=== PATIENT | female | born 1955 | race Caucasian/White ===

== ENCOUNTER 2017-01-21 15:54 | Emergency (ER) | payer MEDICARE, OTHER ==
[~2017-01-21] VITALS: Ht 157.5 cm; Wt 81.6 kg
[~2017-01-21 15:54] MED LIST: HYOS0.1217 PO; ONDA-42 SL; PNT40TEC PO
--- NOTE | 2017-01-21 16:13 | ED GI ---
General Chief Complaint: Cardiac/General Problems Stated Complaint: NAUSEA,THROWING UP,HIGH BLOOD PRESSURE Nursing Triage Note: NVD ONSET SUNDAY. VOMIT X10 WITH DIARRHEA X5-6 TODAY. Sepsis Screen: No Definite Risk Source of Information: Patient, Family Exam Limitations: No Limitations History of Present Illness Time Seen By Provider: 16:12 Initial Comments This 7-year-old white female presents with a history of persistent nausea and vomiting for the last 2 days. The patient believes that she has a viral gastroenteritis. The patient has noted that her blood pressure has been elevated as she's been unable to take her hyper extension medication and that her sugar has been elevated for the same reason from her type II diabetes. The patient denies coffee-ground emesis or blood in her stool. She denies dysuria frequency or flank pain. She is had no associated severe headache or stiff neck. Allergies and Home Medications Allergies Coded Allergies: Sulfa (Sulfonamide Antibiotics) (Verified Allergy, Unknown, 08/04/13) Home Medications Hyoscyamine Sulfate 0.125 Mg/Tab Tab.rapdis, 1-2 EACH PO Q4HR PRN, #30 FOR STOMACH DISCOMFORT Prescribed by: LOLI FONSECA on 08/04/13 1638 Ondansetron Hcl 4 Mg Tab, 4 MG SL Q4H, #10 FOR NAUSEA AND VOMITING Prescribed by: LOLI FONSECA on 08/04/13 1638 Pantoprazole Sodium 40 Mg Tablet.dr, 1 TAB PO DAILY, #30 Prescribed by: LOLI FONSECA on 08/04/13 1638 Review of Systems Constitutional: fever, malaise, weakness EENTM: No Blurred Vision, No Ear Pain Respiratory: Denies Cough Cardiovascular: Denies Chest Pain Gastrointestinal: Diarrhea, Nausea, Vomiting Genitourinary: Denies Burning, Denies Frequency Musculoskeletal: No back pain Skin: No change in color, No rash Psychiatric/Neurological: No Symptoms Reported Endocrine: No Symptoms Reported Hematologic/Lymphatic: No Symptoms Reported Past Ebfkfli-Fmaxog-Mnilab Hx Patient Social History Alcohol Use: Denies Use Recreational Drug Use: No Smoking Status: Never a Smoker Recent Foreign Travel: No Contact w/Someone Who Travel: No Recent Infectious Disease Expo: No Surgeries HX Surgeries: Yes (D&C X 2) Respiratory Hx Respiratory Disorders: No Cardiovascular Hx Cardiac Disorders: No Neurological Hx Neurological Disorders: No Genitourinary Hx Genitourinary Disorders: No Gastrointestinal Hx Gastrointestinal Disorders: No Musculoskeletal Hx Musculoskeletal Disorders: Yes Musculoskeletal Disorders: Chronic Back Pain Endocrine Hx Endocrine Disorders: No HEENT HX ENT Disorders: Yes Hearing Impairment: Hard of Hearing Cancer Hx Cancer: Yes Cancer: Breast Psychosocial Hx Psychiatric Problems: No Integumentary HX Skin/Integumentary Disorder: No Blood Transfusions Hx Blood Disorders: No Adverse Reaction to a Blood Tr: No Reviewed Nursing Assessment Reviewed/Agree w Nursing PMH: Yes Physical Exam Vital Signs VS - Last 72 Hours, by Label 01/21/17 16:06 Pulse 83 Resp 18 B/P (MAP) 142/105 Pulse Ox 98 Capillary Refill : Less Than 3 Seconds General Appearance: WD/WN, mild distress HEENT: normal ENT inspection, TMs normal, pharynx normal Neck: non-tender, full range of motion, supple Respiratory: chest non-tender, lungs clear, normal breath sounds Cardiovascular: normal peripheral pulses, regular rate, rhythm Gastrointestinal: normal bowel sounds, non tender, soft Extremities: normal range of motion, non-tender, normal inspection Back: normal inspection, no CVA tenderness, no vertebral tenderness Neurologic/Psychiatric: no motor/sensory deficits, alert, normal mood/affect Skin: normal color, warm/dry Progress/Results/Core Measures Results/Orders Lab Results Laboratory Tests Test 01/21/17 16:15 01/21/17 16:16 Range/Units White Blood Count 9.9 4.3-11.0 10^3/uL Red Blood Count 4.42 4.35-5.85 10^6/uL Hemoglobin 14.9 11.5-16.0 G/DL Hematocrit 43 35-52 % Mean Corpuscular Volume 96 80-99 FL Mean Corpuscular Hemoglobin 34 25-34 PG Mean Corpuscular Hemoglobin Concent 35 32-36 G/DL Red Cell Distribution Width 12.3 10.0-14.5 % Platelet Count 283 130-400 10^3/uL Mean Platelet Volume 8.6 7.4-10.4 FL Neutrophils (%) (Auto) 68 42-75 % Lymphocytes (%) (Auto) 26 12-44 % Monocytes (%) (Auto) 6 0-12 % Eosinophils (%) (Auto) 0 0-10 % Basophils (%) (Auto) 0 0-10 % Neutrophils # (Auto) 6.8 1.8-7.8 X 10^3 Lymphocytes # (Auto) 2.5 1.0-4.0 X 10^3 Monocytes # (Auto) 0.6 0.0-1.0 X 10^3 Eosinophils # (Auto) 0.0 0.0-0.3 10^3/uL Basophils # (Auto) 0.0 0.0-0.1 10^3/uL Sodium Level 140 135-145 MMOL/L Potassium Level 3.9 3.6-5.0 MMOL/L Chloride Level 104 98-107 MMOL/L Carbon Dioxide Level 20 L 21-32 MMOL/L Anion Gap 16 H 5-14 MMOL/L Blood Urea Nitrogen 17 7-18 MG/DL Creatinine 0.98 0.60-1.30 MG/DL Estimat Glomerular Filtration Rate 58 BUN/Creatinine Ratio 17 0-20 Glucose Level 224 H 70-105 MG/DL Calcium Level 10.2 H 8.5-10.1 MG/DL Total Bilirubin 0.5 0.1-1.0 MG/DL Aspartate Amino Transf (AST/SGOT) 20 5-34 U/L Alanine Aminotransferase (ALT/SGPT) 21 0-55 U/L Alkaline Phosphatase 108 40-136 U/L Total Protein 8.6 H 6.4-8.2 GM/DL Albumin 4.4 3.2-4.5 GM/DL Glucometer 208 H 70-110 MG/DL My Orders Orders - WILDER MITCHELL MD Ns Iv 1000 Ml (Sodium Chloride 0.9%) (01/21/17 16:15) Ondansetron Injection (Zofran Injectio (01/21/17 16:15) Cbc With Automated Diff (01/21/17 16:10) Comprehensive Metabolic Panel (01/21/17 16:10) Ua Culture If Indicated (01/21/17 16:10) Normal Saline Bolus 1,000ml (01/21/17 17:45) Medications Given in ED Current Medications Medications Dose Ordered Sig/Allen Route Start Time Stop Time Status Last Admin Dose Admin Ondansetron HCl 4 mg ONCE ONCE IVP 01/21/17 16:15 01/21/17 16:16 DC 01/21/17 16:24 4 MG Vital Signs/I&O Vital Sign - Last 12Hours 01/21/17 16:06 Pulse 83 Resp 18 B/P (MAP) 142/105 Pulse Ox 98 Blood Pressure Mean: 117 Progress Note : Time: 17:32 Progress Note The patient's laboratory evaluation demonstrated glucose of 201. The patient's white count was not dramatically elevated. The patient was rehydrated with a liter of normal saline. Her nausea abated with 4 mg Zofran IV. Because the patient has had previous similar episode that led to significant complications from dehydration and a second liter of normal saline was given to her to make certain that we had adequately hydrated her. The patient has been are comfortable with home care with Zofran for further nausea. They will return to emergency Department if they have any difficulty in maintaining liquids and hydration. Departure Impression Impression: Primary Impression: Nausea vomiting and diarrhea Disposition: HOME, SELF-CARE Condition: Improved Departure-Patient Inst. Decision time for Depature: 17:34 Add. Discharge Instructions: Zofran for nausea. Clear liquids for 24 hours. Close follow-up with your doctor on Sunday. Return if any problems or questions. All discharge instructions reviewed with patient and/or family. Voiced understanding. WILDER MITCHELL MD Jan 21, 2017 16:13
[2017-01-21] MEDS ORDERED: ONDANSETRON 4 MG/2 ML (SDV) Z0FRAN IVP ONE (16:15)
[2017-01-21] MEDS ORDERED: NS IV 1000 ML 1,000 ML IV SCH ×2 (16:15→17:45)
[2017-01-21 16:32] LABS: BASOPHILS % (AUTO) 0 % (0-10); EOSINOPHILS % (AUTO) 0 % (0-10); LYMPHOCYTES # (AUTO) 2.5 X 10^3 (1.0-4.0); LYMPHOCYTES % (AUTO) 26 % (12-44); MEAN CORPUSCULAR HEMOGLOBIN 34 PG (25-34); MEAN CORPUSCULAR HGB CONC 35 G/DL (32-36); MEAN CORPUSCULAR VOLUME 96 FL (80-99); MEAN PLATELET VOLUME 8.6 FL (7.4-10.4); MONOCYTES # (AUTO) 0.6 X 10^3 (0.0-1.0); MONOCYTES % (AUTO) 6 % (0-12); NEUTROPHILS # (AUTO) 6.8 X 10^3 (1.8-7.8); NEUTROPHILS % (AUTO) 68 % (42-75); PLATELET COUNT 283 10^3/uL (130-400); RED BLOOD COUNT 4.42 10^6/uL (4.35-5.85); RED CELL DISTRIBUTION WIDTH 12.3 % (10.0-14.5); WHITE BLOOD COUNT 9.9 10^3/uL (4.3-11.0)
[2017-01-21 17:22] LABS: ALBUMIN 4.4 GM/DL (3.2-4.5); BILIRUBIN,TOTAL 0.5 MG/DL (0.1-1.0); CALCIUM 10.2 MG/DL (8.5-10.1); CREATININE SERUM 0.98 MG/DL (0.60-1.30); ICTERUS 0.5 (-100-1.9); POTASSIUM 3.9 MMOL/L (3.6-5.0); TOTAL PROTEIN 8.6 GM/DL (6.4-8.2)
[2017-01-21 18:40] VITALS: BP 142/105
== END 2017-01-21 18:40 | disposition home or self-care (01) ==
LOC: EDUNIT# 15:54 → ER 15:58
DX: R11.2 Nausea with vomiting, unspecified (principal); R19.7 Diarrhea, unspecified
CPT/HCPCS: 36415; 80053; 82962; 85025

== ENCOUNTER 2017-07-28 04:04 | Emergency (ER) | payer MEDICARE, OTHER ==
[~2017-07-28] VITALS: Ht 157.5 cm; Wt 81.6 kg
[2017-07-28] MEDS ORDERED: NS IV 1000 ML 1,000 ML IV ONE (04:24)
[2017-07-28] MEDS ORDERED: FAMOTIDINE 20MG/2ML IV (PEPCID) IVP ONE (04:30)
[2017-07-28] MEDS ORDERED: fentaNYL INJECTION 100 MCG/2 ML AMP IVP ONE (04:30)
[2017-07-28] MEDS ORDERED: ONDANSETRON 4 MG/2 ML (SDV) Z0FRAN IVP ONE ×2 (04:30→08:15)
[2017-07-28 04:31] LABS: BASOPHILS % (AUTO) 0 % (0-10); EOSINOPHILS % (AUTO) 0 % (0-10); LYMPHOCYTES # (AUTO) 0.4 X 10^3 (1.0-4.0); LYMPHOCYTES % (AUTO) 8 % (12-44); MEAN CORPUSCULAR HEMOGLOBIN 34 PG (25-34); MEAN CORPUSCULAR HGB CONC 35 G/DL (32-36); MEAN CORPUSCULAR VOLUME 98 FL (80-99); MEAN PLATELET VOLUME 8.6 FL (7.4-10.4); MONOCYTES # (AUTO) 0.1 X 10^3 (0.0-1.0); MONOCYTES % (AUTO) 2 % (0-12); NEUTROPHILS # (AUTO) 4.8 X 10^3 (1.8-7.8); NEUTROPHILS % (AUTO) 89 % (42-75); PLATELET COUNT 195 10^3/uL (130-400); RED BLOOD COUNT 4.01 10^6/uL (4.35-5.85); RED CELL DISTRIBUTION WIDTH 11.4 % (10.0-14.5); WHITE BLOOD COUNT 5.4 10^3/uL (4.3-11.0)
[2017-07-28] MEDS ORDERED: GLIP10TA13 (04:45)
[2017-07-28] MEDS ORDERED: MORP-34 (04:45)
[2017-07-28] MEDS ORDERED: CARI350T27 (04:45)
[2017-07-28] MEDS ORDERED: HYDR-3820 (04:45)
[2017-07-28 04:54] LABS: BAND NEUTROPHILS 13 %; BASOPHILS % (MANUAL) 0 %; EOSINOPHILS % (MANUAL) 0 %; LYMPHOCYTES % (MANUAL) 10 %; NEUTROPHILS % (MANUAL) 72 %; REACTIVE LYMPHOCYTES 4 %
[2017-07-28] MEDS ORDERED: morphine INJ 10 MG/ML 1ML (SYR OR VIAL) IVP ONE (05:00)
[2017-07-28 05:02] LABS: ALANINE AMINOTRANSFERASE 353 U/L (0-55); ALBUMIN 3.7 GM/DL (3.2-4.5); ANION GAP 18 MMOL/L (5-14); ASPARTATE AMINO TRANSFERASE 603 U/L (5-34); BILIRUBIN,TOTAL 1.9 MG/DL (0.1-1.0); BLOOD UREA NITROGEN 17 MG/DL (7-18); BUN/CREATININE RATIO 19; CALCIUM 9.7 MG/DL (8.5-10.1); CARBON DIOXIDE 26 MMOL/L (21-32); CHLORIDE 99 MMOL/L (98-107); CREATININE SERUM 0.91 MG/DL (0.60-1.30); GFR ESTIMATED > 60; GLUCOSE 212 MG/DL (70-105); LIPASE 24 U/L (8-78); MAGNESIUM 1.5 MG/DL (1.8-2.4); POTASSIUM 3.4 MMOL/L (3.6-5.0); SODIUM 143 MMOL/L (135-145); TOTAL PROTEIN 7.6 GM/DL (6.4-8.2)
[2017-07-28 05:07] LABS: BILIRUBIN,URINE NEGATIVE (NEGATIVE); KETONES,URINE 3+ (NEGATIVE); LEUKOCYTE ESTERASE ,URINE 1+ (NEGATIVE); NITRITE,URINE NEGATIVE (NEGATIVE); PH,URINE 7 (5-9); PROTEIN,URINE 1+ (NEGATIVE); UROBILINOGEN,URINE 1 MG/DL (NORMAL)
[2017-07-28 05:13] LABS: WBC,URINE 0-2 /HPF
[2017-07-28] MEDS ORDERED: PROMETHAZINE INJ 25 MG/ML (PHENERGAN) AMP IVP ONE (05:45)
--- NOTE | 2017-07-28 05:48 | ED Abdominal Pain ---
General Chief Complaint: Abdominal/GI Problems Stated Complaint: N/V Nursing Triage Note: C/O nausea, vomiting and abd pain starting at 2200. Sepsis Screen: Possible Sepsis Risk Source of Information: Patient Exam Limitations: No Limitations (ARTHUR DASILVA MD) History of Present Illness Time Seen By Provider: 04:16 Initial Comments This 61-year-old woman presents to the emergency room with complaints of upper abdominal pain, cramping, back spasms, and vomiting that woke her from sleep around 22:00. She denies any blood in her emesis. Her last bowel movement was normal just prior to leaving the house. She is status post cholecystectomy. Patient has chronic back pain for which she takes morphine. She was unable to keep her medications down this evening. She is febrile with a temperature of 101. Patient also reports feeling a little short of breath. Oxygen saturation was 90 percent on room air. (ARTHUR DASILVA MD) Allergies and Home Medications Allergies Coded Allergies: Sulfa (Sulfonamide Antibiotics) (Verified Allergy, Unknown, 07/28/17) Home Medications Carisoprodol 350 Mg Tablet, (Reported) Glipizide 10 Mg Tablet, (Reported) Hydrocodone/Acetaminophen 1 Each Tablet, (Reported) Hyoscyamine Sulfate 0.125 Mg/Tab Tab.rapdis, 1-2 EACH PO Q4HR PRN, #30 FOR STOMACH DISCOMFORT Prescribed by: LOLI FONSECA on 08/04/13 1638 Morphine Sulfate 30 Mg Tablet.er, (Reported) Ondansetron Hcl 4 Mg Tab, 4 MG SL Q4H, #10 FOR NAUSEA AND VOMITING Prescribed by: LOLI FONSECA on 08/04/13 1638 Pantoprazole Sodium 40 Mg Tablet.dr, 1 TAB PO DAILY, #30 Prescribed by: LOLI FONSECA on 08/04/13 1638 Review of Systems Constitutional: see HPI EENTM: No Symptoms Reported Respiratory: See HPI Cardiovascular: No Symptoms Reported Gastrointestinal: See HPI Genitourinary: No Symptoms Reported Musculoskeletal: see HPI Skin: no symptoms reported Psychiatric/Neurological: No Symptoms Reported Endocrine: No Symptoms Reported Hematologic/Lymphatic: No Symptoms Reported (ARTHUR DASILVA MD) Past Gsjmbdg-Subwbq-Goabmr Hx Patient Social History Alcohol Use: Denies Use Recreational Drug Use: No Smoking Status: Never a Smoker 2nd Hand Smoke Exposure: No Recent Foreign Travel: No Contact w/Someone Who Travel: No Recent Infectious Disease Expo: No Recent Hopitalizations: No Physical Abuse: No Sexual Abuse: No Mistreated: No Fear: No (ARTHUR DASILVA MD) Immunizations Up To Date Tetanus Booster (TDap): Unknown (ARTHUR DASILVA MD) Seasonal Allergies Seasonal Allergies: Yes (ARTHUR DASILVA MD) Surgeries History of Surgeries: Yes (D&C X 2) Surgeries: Breast (bilateral mastectomy), Gallbladder (ARTHUR DASILVA MD) Respiratory History of Respiratory Disorde: No (ARTHUR DASILVA MD) Cardiovascular History of Cardiac Disorders: No (ARTHUR DASILVA MD) Neurological History of Neurological Disord: No (ARTHUR DASILVA MD) Genitourinary History of Genitourinary Disor: No (ARTHUR DASILVA MD) Gastrointestinal History of Gastrointestinal Di: No (ARTHUR DASILVA MD) Musculoskeletal History of Musculoskeletal Dis: Yes Musculoskeletal Disorders: Chronic Back Pain (ARTHUR DASILVA MD) Endocrine History of Endocrine Disorders: No (ARTHUR DASILVA MD) HEENT History of HEENT Disorders: Yes Hearing Impairment: Hard of Hearing (ARTHUR DASILVA MD) Cancer History of Cancer: Yes Cancer: Breast (ARTHUR DASILVA MD) Psychosocial History of Psychiatric Problem: No Suicide Risk Score: 0 (ARTHUR DASILVA MD) Integumentary History of Skin or Integumenta: No (ARTHUR DASILVA MD) Blood Transfusions History of Blood Disorders: No Adverse Reaction to a Blood Tr: No (ARTHUR DASILVA MD) Physical Exam Vital Signs VS - Last 72 Hours, by Label 07/28/17 07/28/17 07/28/17 07/28/17 04:10 05:24 06:39 06:42 Temp 101.0 98.2 98.4 Pulse 102 93 95 Resp 20 20 18 B/P (MAP) 157/75 (102) 149/62 134/65 Pulse Ox 90 100 98 O2 Delivery Nasal Cannula Nasal Cannula Nasal Cannula O2 Flow Rate 2.00 2.00 (MONROE PINEDA) Vital Signs Capillary Refill : Less Than 3 Seconds (ARTHRU DASILVA MD) General Appearance: WD/WN, mild distress HEENT: PERRL/EOMI, normal ENT inspection, pharynx normal Neck: normal inspection Respiratory: lungs clear, normal breath sounds, no respiratory distress, no accessory muscle use Cardiovascular: regular rate, rhythm, no edema, systolic murmur, other ( abdominal bruit heard) Gastrointestinal: normal bowel sounds, soft, tenderness (diffusely but most prominent in the epigastrium and right upper quadrant) Extremities: normal inspection, no pedal edema Neurologic/Psychiatric: lead engineer II-XII nml as tested, no motor/sensory deficits, alert, normal mood/affect, oriented x 3 Skin: normal color, warm/dry (ARTHUR DASILVA MD) Focused Exam Evaluation Lactate Level Laboratory Tests 07/28/17 04:23: Lactic Acid Level 2.69*H 07/28/17 06:18: Lactic Acid Level 2.26*H (MONROE PINEDA) Lactic Acid Level Laboratory Tests Test 07/28/17 04:23 07/28/17 06:18 Lactic Acid Level 2.69 MMOL/L (0.50-2.00) *H 2.26 MMOL/L (0.50-2.00) *H (MONROE PINEDA) Progress/Results/Core Measures Results/Orders Lab Results Laboratory Tests Test 07/28/17 04:23 07/28/17 04:56 07/28/17 06:18 Range/Units White Blood Count 5.4 4.3-11.0 10^3/uL Red Blood Count 4.01 L 4.35-5.85 10^6/uL Hemoglobin 13.8 11.5-16.0 G/DL Hematocrit 39 35-52 % Mean Corpuscular Volume 98 80-99 FL Mean Corpuscular Hemoglobin 34 25-34 PG Mean Corpuscular Hemoglobin Concent 35 32-36 G/DL Red Cell Distribution Width 11.4 10.0-14.5 % Platelet Count 195 130-400 10^3/uL Mean Platelet Volume 8.6 7.4-10.4 FL Neutrophils (%) (Auto) 89 H 42-75 % Lymphocytes (%) (Auto) 8 L 12-44 % Monocytes (%) (Auto) 2 0-12 % Eosinophils (%) (Auto) 0 0-10 % Basophils (%) (Auto) 0 0-10 % Neutrophils # (Auto) 4.8 1.8-7.8 X 10^3 Lymphocytes # (Auto) 0.4 L 1.0-4.0 X 10^3 Monocytes # (Auto) 0.1 0.0-1.0 X 10^3 Eosinophils # (Auto) 0.0 0.0-0.3 10^3/uL Basophils # (Auto) 0.0 0.0-0.1 10^3/uL Neutrophils % (Manual) 72 % Lymphocytes % (Manual) 10 % Monocytes % (Manual) 1 % Eosinophils % (Manual) 0 % Basophils % (Manual) 0 % Band Neutrophils 13 % Reactive Lymphocytes 4 % Blood Morphology Comment NORMAL Sodium Level 143 135-145 MMOL/L Potassium Level 3.4 L 3.6-5.0 MMOL/L Chloride Level 99 98-107 MMOL/L Carbon Dioxide Level 26 21-32 MMOL/L Anion Gap 18 H 5-14 MMOL/L Blood Urea Nitrogen 17 7-18 MG/DL Creatinine 0.91 0.60-1.30 MG/DL Estimat Glomerular Filtration Rate > 60 BUN/Creatinine Ratio 19 Glucose Level 212 H 70-105 MG/DL Lactic Acid Level 2.69 *H 2.26 *H 0.50-2.00 MMOL/L Calcium Level 9.7 8.5-10.1 MG/DL Magnesium Level 1.5 L 1.8-2.4 MG/DL Total Bilirubin 1.9 H 0.1-1.0 MG/DL Aspartate Amino Transf (AST/SGOT) 603 H 5-34 U/L Alanine Aminotransferase (ALT/SGPT) 353 H 0-55 U/L Alkaline Phosphatase 423 H 40-136 U/L C-Reactive Protein High Sensitivity 3.41 H 0.00-0.50 MG/DL Total Protein 7.6 6.4-8.2 GM/DL Albumin 3.7 3.2-4.5 GM/DL Lipase 24 8-78 U/L Urine Color YELLOW Urine Clarity CLEAR Urine pH 7 5-9 Urine Specific Lequire 1.010 L 1.016-1.022 Urine Protein 1+ H NEGATIVE Urine Glucose (UA) 3+ H NEGATIVE Urine Ketones 3+ H NEGATIVE Urine Nitrite NEGATIVE NEGATIVE Urine Bilirubin NEGATIVE NEGATIVE Urine Urobilinogen 1 NORMAL MG/DL Urine Leukocyte Esterase 1+ H NEGATIVE Urine RBC (Auto) NEGATIVE NEGATIVE Urine RBC NONE /HPF Urine WBC 0-2 /HPF Urine Squamous Epithelial Cells 5-10 /HPF Urine Crystals PRESENT H /LPF Urine Amorphous Sediment FEW TO PHOSPHATE H /LPF Urine Bacteria TRACE /HPF Urine Casts NONE /LPF Urine Mucus NEGATIVE /LPF Urine Culture Indicated NO (MONROE PINEDA) Micro Results Microbiology 07/28/17 Influenza Types A,B Antigen (DEION) - Final, Complete (MONROE PINEDA) My Orders Orders - MONROE PINEDA Magnesium 1 Gm/100 Ml Ivpb (Magnesium Meneses (07/28/17 06:45) (MONROE PINEDA) Medications Given in ED Current Medications Medications Dose Ordered Sig/Allen Route Start Time Stop Time Status Last Admin Dose Admin Famotidine 20 mg ONCE ONCE IVP 07/28/17 04:30 07/28/17 04:31 DC 07/28/17 04:32 20 MG Fentanyl Citrate 75 mcg ONCE ONCE IVP 07/28/17 04:30 07/28/17 04:31 DC 07/28/17 04:33 75 MCG Iohexol 100 ml ONCE ONCE IV 07/28/17 06:00 07/28/17 06:01 DC 07/28/17 05:57 100 ML Morphine Sulfate 5 mg ONCE ONCE IVP 07/28/17 05:00 07/28/17 05:01 DC 07/28/17 05:06 5 MG Ondansetron HCl 8 mg ONCE ONCE IVP 07/28/17 04:30 07/28/17 04:31 DC 07/28/17 04:32 8 MG Piperacillin Sod/ Tazobactam Sod 4.5 gm/Sodium Chloride 100 ml @ 200 mls/hr ONCE ONCE IV 07/28/17 06:30 07/28/17 07:00 DC 07/28/17 06:28 200 MLS/HR Promethazine HCl 25 mg ONCE ONCE IVP 07/28/17 05:45 07/28/17 05:46 DC 07/28/17 05:53 25 MG Sodium Chloride 100 ml ONCE ONCE IV 07/28/17 06:00 12/23/17 06:01 DC 07/28/17 05:57 80 ML Sodium Chloride 1,000 ml @ 0 mls/hr Q0M ONCE IV 07/28/17 04:24 07/28/17 04:26 DC 07/28/17 04:30 1,000 MLS/HR (MONROE PINEDA) Vital Signs/I&O Vital Sign - Last 12Hours 07/28/17 07/28/17 07/28/17 07/28/17 04:10 05:24 06:39 06:42 Temp 101.0 98.2 98.4 Pulse 102 93 95 Resp 20 20 18 B/P (MAP) 157/75 (102) 149/62 134/65 Pulse Ox 90 100 98 O2 Delivery Nasal Cannula Nasal Cannula Nasal Cannula O2 Flow Rate 2.00 2.00 (MONROE PINEDA) Blood Pressure Mean: 91 Progress Note #1: Time: 05:18 Progress Note Patient was treated with fentanyl and morphine for pain. The Zofran and Pepcid were given for vomiting. IV hydration was given with a 1 L normal saline bolus. Renal function is normal. Transaminases are markedly elevated. CT of the abdomen and pelvis with contrast was ordered. Patient is now afebrile. Progress Note #2: Time: 05:48 Progress Note Patient is in the CT department. She requested more antiemetic before the CT is initiated. Phenergan 25 mg IV was ordered. Progress Note #3: Time: 06:[address] of the abdomen and pelvis with contrast has been performed. Patient appears to have bile duct pathology with biliary dilatation. There is a radiopaque object in the location of the bile duct. Patient does not recall ever having a stent placed. Pain is rebounding and the allotted was ordered. Zosyn will be given after collection of the second blood culture. Care of this patient is being transferred to Dr. Pineda at this time. (ARTHUR DASILVA MD) Progress Note : Time: 07:14 Progress Note gives further history that the reason the steps left in is because there is a dispute about the bill so surgeon refused taken out. He is okay with going to [facility] to get the ERCP for her but would like to take the patient by private vehicle. 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 He understands the risks as well as the inability to give her more nausea or pain medicine en route. The patient and are both in agreement they would prefer to go by private vehicle. (MONROE PINEDA) Diagnostic Imaging Diagonstic Imaging: Xray Plain Films/CT/US/NM/MRI: chest Comments Chest x-ray viewed by me. Report not yet available. No acute abnormalities appreciated. (ARTHUR DASILVA MD) Diagonstic Imaging: CT (w/ contrast) Plain Films/CT/US/NM/MRI: abdomen, pelvis Comments Stat read increasing biliary ductal dilatation of intrahepatic and extrahepatic. Question biliary drain malfunction. Reviewed: Reviewed [place] Hawk Study, Reviewed by Me (MONROE PINEDA) Consults Consults : Consulting Physician: JUSTYNA GÓMEZ MD Consults Notes Discussed the case lab imaging and findings with Dr. Gómez. He feels patient needs an ERCP and recommends she be sent back to the place she had her prior surgery done. (MONROE PINEDA) Transfer of Care Transfer of Care Time: 06:37 Care transferred to: Miriam (MONROE PINEDA) Departure Impression Impression: Primary Impression: Common biliary duct obstruction Additional Impression: Sepsis Qualified Codes: A41.9 - Sepsis, unspecified organism Disposition: 02 XFER SHT-TRM HOSP Condition: Stable Transfer Time Spoke to Accepting Phy: 06:50 Transfer Progress Notes 0650: Triage 0700: Dr Vicenta YARBROUGH agrees the pt needs transfer for GI management. 0705: Dr Sean HINTON agrees to take the pt. Transfer Time: 08:00 Transfer Facility: [facility] Method of Transfer: Private Vehicle (MONROE PINEDA) Departure-Patient Inst. Referrals: En SANTOYO DO (PCP/Family) Primary Care Physician ARTHUR DASILVA MD Jul 28, 2017 05:48 MONROE PINEDA Jul 28, 2017 06:40
[2017-07-28] MEDS ORDERED: NS 100 ML (IVPB) BAG IV ONE (06:00)
[2017-07-28] MEDS ORDERED: IOHEXOL 350 MG/ML 100 ML (OMNIPAQUE 350) VIAL IV ONE (06:00)
[2017-07-28] MEDS ORDERED: HYDROmorphone (DILAUDID) 2 MG/ML VIAL IVP STA (06:18)
[2017-07-28] MEDS ORDERED: PIPERACILLIN SODIUM/TAZOBACTAM 4.5 GM in NS (IVPB) 100 ML IV ONE (06:30)
[2017-07-28] MEDS ORDERED: MAGNESIUM 1 GM/100 ML IVPB 100 ML IV ONE (06:45)
--- NOTE | 2017-07-28 06:57 | Diagnostic Imaging Report ---
Clinical indication: Patient with nausea and vomiting onset last evening. Exam: Portable chest x-ray upright view. Comparisons: None. Findings: Lungs/pleura: Lungs are clear. There is no pneumothorax. There is no pleural effusion. Mediastinum: Unremarkable. Pulmonary vasculature: Unremarkable. Heart: Unremarkable. Bones/extrathoracic soft tissue: There are multiple surgical clips overlying the bilateral axillary regions. Bones show no other significant abnormality. Impression: There is no radiographic evidence of acute cardiopulmonary process. Dictated by: Dictated on workstation # [id number]
--- NOTE | 2017-07-28 07:28 | Diagnostic Imaging Report ---
PROCEDURE: CT abdomen and pelvis with contrast. TECHNIQUE: Multiple contiguous axial images were obtained through the abdomen and pelvis after administration of intravenous contrast. INDICATION: Nausea and vomiting. History of hysterectomy and cholecystectomy. 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 Comparison made with prior examination from 08/04/2013. FINDINGS: The heart size is normal. There is minimal atelectasis in the right lung base. The liver is normal in size. There is moderate intrahepatic biliary ductal dilatation despite the presence of a common bile duct stent. There are calcified granulomas in the spleen. The pancreas and adrenal glands are unremarkable. 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 A single ureter crosses over the midline and drains into the right urinary bladder. There is no hydronephrosis. Bowel gas pattern is nonspecific. There is no CT evidence of appendicitis. There is no free air. There is no ascites. There are no focal inflammatory changes. There is no pelvic mass, adenopathy, or free fluid. The bladder is unremarkable. The osseous structures are unremarkable. There is no pathologically enlarged adenopathy. IMPRESSION: Moderate intrahepatic biliary ductal dilatation. Possibility of an obstructed common bile duct stent cannot be excluded. Recommend clinical correlation. Minimal-sized subsegmental atelectasis in the right lung base. 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 Dictated by: Dictated on workstation # [id number]
[2017-07-28 08:29] VITALS: BP 134/65
== END 2017-07-28 08:29 | disposition short-term general hospital (02) ==
LOC: EDUNIT# 04:04 → ER 04:05
DX: K83.1 Obstruction of bile duct (principal); A41.9 Sepsis, unspecified organism; Z90.49 Acquired absence of other specified parts of digestive tract; Z79.84 Long term (current) use of oral hypoglycemic drugs; Z90.13 Acquired absence of bilateral breasts and nipples; Z85.3 Personal history of malignant neoplasm of breast
CPT/HCPCS: 36415; 71010; 74177; 80053; 81000; 83605; 83690; 83735; 85007; 85027; 86141; 87040; 87077; 87186; 87804

== ENCOUNTER 2018-05-03 16:10 | Outpatient (RCR) | payer MEDICARE, OTHER ==
[~2018-05-03 16:10] MED LIST changes: +CARI350T27; +GLIP10TA13; +HYDR-3820; +MORP-34
== END 2018-05-05 | disposition home or self-care (01) ==
PROVIDERS: ATTEND Family Medicine
DX: M54.9 Dorsalgia, unspecified (principal); R53.1 Weakness

== ENCOUNTER 2018-05-23 12:43 | Outpatient (RCR) | payer MEDICARE, OTHER | END 2018-05-23 13:43 | disposition home or self-care (01) | PROVIDERS: ATTEND Family Medicine | DX: M54.9 Dorsalgia, unspecified (principal); R53.1 Weakness ==

== ENCOUNTER 2018-10-08 17:38 | Emergency (ER) | payer MEDICARE, OTHER ==
[~2018-10-08] VITALS: Ht 157.5 cm; Wt 77.1 kg
--- NOTE | 2018-10-08 19:13 | NUR ---
Pt ambulatory to rm 10 at this time. Pt reports diarrhea has worsened since first checking in. Pt reports being able to give a urine sample at this time.
[2018-10-08] MEDS ORDERED: fentaNYL INJECTION 100 MCG/2 ML AMP IVP ONE ×2 (19:30→21:30)
[2018-10-08] MEDS ORDERED: NS IV 1000 ML 1,000 ML IV SCH (19:30)
[2018-10-08] MEDS ORDERED: ONDANSETRON 4 MG/2 ML (SDV) Z0FRAN IVP ONE (19:30)
[2018-10-08 19:48] LABS: BASOPHILS % (AUTO) 0 % (0-10); EOSINOPHILS % (AUTO) 0 % (0-10); HEMATOCRIT 39 % (35-52); HEMOGLOBIN 13.5 G/DL (11.5-16.0); LYMPHOCYTES # (AUTO) 1.6 X 10^3 (1.0-4.0); LYMPHOCYTES % (AUTO) 22 % (12-44); MEAN CORPUSCULAR HEMOGLOBIN 34 PG (25-34); MEAN CORPUSCULAR HGB CONC 35 G/DL (32-36); MEAN CORPUSCULAR VOLUME 99 FL (80-99); MEAN PLATELET VOLUME 8.6 FL (7.4-10.4); MONOCYTES # (AUTO) 0.5 X 10^3 (0.0-1.0); MONOCYTES % (AUTO) 7 % (0-12); NEUTROPHILS # (AUTO) 5.3 X 10^3 (1.8-7.8); NEUTROPHILS % (AUTO) 71 % (42-75); PLATELET COUNT 247 10^3/uL (130-400); RED CELL DISTRIBUTION WIDTH 13.1 % (10.0-14.5); WHITE BLOOD COUNT 7.5 10^3/uL (4.3-11.0)
--- NOTE | 2018-10-08 20:12 | ED Abdominal Pain ---
General Chief Complaint: Abdominal/GI Problems Stated Complaint: ABD PAIN;DIARRHEA Nursing Triage Note: TO TRIAGE VIA AMB WITHOUT DIFFICULTY. COMPLAINTS OF LEFT LOWER ABD PAIN WITH DIARRHEA X4 DAYS. WHEN SHE RAISED UP HER SHIRT SLEEVE A 20G IV WAS PRESENT IN THE LEFT AC. STATES SHE WAS AT [facility] AND WAITED 4 HOURS SO SHE LEFT AND CAME HERE. Sepsis Screen: No Definite Risk Source of Information: Patient Exam Limitations: No Limitations History of Present Illness Date Seen by Provider: Oct 08, 2018 Time Seen by Provider: 19:20 Initial Comments 63-year-old female who presents to the emergency room with complaints of left lower quadrant abdominal pain, nausea, vomiting, diarrhea for the past 4 days. She reports that she was seen and triaged at [facility] and waited 4 hours in the waiting room to be seen before she left and decided to come here. She did leave with her IV that they started during triage in her left AC space. Timing/Duration: 4-5 Days Severity/Quality: Sharp Location: LLQ Radiation: No Radiation Associated Symptoms: Nausea/Vomiting Allergies and Home Medications Allergies Coded Allergies: Sulfa (Sulfonamide Antibiotics) (Verified Allergy, Unknown, 07/28/17) clonidine (Unverified Allergy, Unknown, 10/08/18) Home Medications Cephalexin 500 Mg Capsule, 500 MG PO BID Prescribed by: YUSEF WILD on 10/08/182141 Hyoscyamine Sulfate 0.125 Mg/Tab Tab.rapdis, 1-2 EACH PO Q4HR PRN FOR STOMACH DISCOMFORT Prescribed by: LOLI FONSECA on 08/04/13 163 Ondansetron HCl 4 Mg Tab, 4 MG PO Q4H PRN for NAUSEA/VOMITING-1ST LINE Prescribed by: YUSEF WILD on 10/08/182141 Ondansetron Hcl 4 Mg Tab, 4 MG SL Q4H FOR NAUSEA AND VOMITING Prescribed by: LOLI FONSECA on 08/04/13 1638 Pantoprazole Sodium 40 Mg Tablet.dr, 1 TAB PO DAILY Prescribed by: LOLI FONSECA on 08/04/13 1638 Patient Home Medication List Home Medication List Reviewed: Yes Review of Systems Review of Systems Constitutional: see HPI; No chills, No fever Gastrointestinal: See HPI, Abdominal Pain, Diarrhea, Nausea, Vomiting All Other Systems Reviewed Negative Unless Noted: Yes Past Fwkkwoz-Znrhwu-Fmqtkd Hx Past Med/Social Hx: Reviewed Nursing Past Med/Soc Hx Patient Social History 2nd Hand Smoke Exposure: No Recent Foreign Travel: No Contact w/Someone Who Travel: No Recent Infectious Disease Expo: No Recent Hopitalizations: No Immunizations Up To Date Tetanus Booster (TDap): Unknown Seasonal Allergies Seasonal Allergies: Yes Past Medical History Surgeries: Yes (D&C X 2) Breast, Gallbladder Respiratory: No Cardiac: No Neurological: No Genitourinary: No Gastrointestinal: No Musculoskeletal: Yes Chronic Back Pain Endocrine: No HEENT: Yes Hearing Impairment: Hard of Hearing Cancer: Yes Breast Psychosocial: No Integumentary: No Blood Disorders: No Adverse Reaction/Blood Tranf: No Family Medical History Reviewed Nursing Family Hx Physical Exam Vital Signs Vital Signs - First Documented 10/08/18 17:40 Temp 97.4 Pulse 85 Resp 16 B/P (MAP) 168/67 (100) Pulse Ox 98 O2 Delivery Room Air Capillary Refill : Less Than 3 Seconds Height/Weight/BMI Height: 5'2.00" Weight: 170lbs. oz. 77.963128rs; 33.83 BMI Method:Stated General Appearance: WD/WN, no apparent distress Respiratory: chest non-tender, lungs clear, normal breath sounds, no respiratory distress, no accessory muscle use Cardiovascular: normal peripheral pulses, regular rate, rhythm, no edema, no gallop, no JVD, no murmur Gastrointestinal: normal bowel sounds, soft, no organomegaly, no pulsatile mass , tenderness (left lower quadrant tenderness) Extremities: normal capillary refill Neurologic/Psychiatric: alert, normal mood/affect, oriented x 3 Skin: normal color, warm/dry Progress/Results/Core Measures Results/Orders Lab Results Laboratory Tests Test 10/08/18 19:40 10/08/18 21:03 Range/Units White Blood Count 7.5 4.3-11.0 10^3/uL Red Blood Count 3.96 L 4.35-5.85 10^6/uL Hemoglobin 13.5 11.5-16.0 G/DL Hematocrit 39 35-52 % Mean Corpuscular Volume 99 80-99 FL Mean Corpuscular Hemoglobin 34 25-34 PG Mean Corpuscular Hemoglobin Concent 35 32-36 G/DL Red Cell Distribution Width 13.1 10.0-14.5 % Platelet Count 247 130-400 10^3/uL Mean Platelet Volume 8.6 7.4-10.4 FL Neutrophils (%) (Auto) 71 42-75 % Lymphocytes (%) (Auto) 22 12-44 % Monocytes (%) (Auto) 7 0-12 % Eosinophils (%) (Auto) 0 0-10 % Basophils (%) (Auto) 0 0-10 % Neutrophils # (Auto) 5.3 1.8-7.8 X 10^3 Lymphocytes # (Auto) 1.6 1.0-4.0 X 10^3 Monocytes # (Auto) 0.5 0.0-1.0 X 10^3 Eosinophils # (Auto) 0.0 0.0-0.3 10^3/uL Basophils # (Auto) 0.0 0.0-0.1 10^3/uL Sodium Level 140 135-145 MMOL/L Potassium Level 4.1 3.6-5.0 MMOL/L Chloride Level 107 98-107 MMOL/L Carbon Dioxide Level 22 21-32 MMOL/L Anion Gap 11 5-14 MMOL/L Blood Urea Nitrogen 19 H 7-18 MG/DL Creatinine 0.99 0.60-1.30 MG/DL Estimat Glomerular Filtration Rate 57 BUN/Creatinine Ratio 19 Glucose Level 238 H 70-105 MG/DL Calcium Level 9.5 8.5-10.1 MG/DL Corrected Calcium 9.4 8.5-10.1 MG/DL Total Bilirubin 0.3 0.1-1.0 MG/DL Aspartate Amino Transf (AST/SGOT) 29 5-34 U/L Alanine Aminotransferase (ALT/SGPT) 19 0-55 U/L Alkaline Phosphatase 55 40-136 U/L Total Protein 8.0 6.4-8.2 GM/DL Albumin 4.1 3.2-4.5 GM/DL Amylase Level 56 25-125 U/L Lipase 19 8-78 U/L Urine Color YELLOW Urine Clarity CLEAR Urine pH 6 5-9 Urine Specific [employer] 1.015 L 1.016-1.022 Urine Protein 2+ H NEGATIVE Urine Glucose (UA) 4+ H NEGATIVE Urine Ketones NEGATIVE NEGATIVE Urine Nitrite POSITIVE H NEGATIVE Urine Bilirubin NEGATIVE NEGATIVE Urine Urobilinogen NORMAL NORMAL MG/DL Urine Leukocyte Esterase 1+ H NEGATIVE Urine RBC (Auto) NEGATIVE NEGATIVE Urine RBC NONE /HPF Urine WBC 10-25 H /HPF Urine Squamous Epithelial Cells 2-5 /HPF Urine Crystals NONE /LPF Urine Bacteria LARGE H /HPF Urine Casts NONE /LPF Urine Mucus NEGATIVE /LPF Urine Culture Indicated YES Micro Results Microbiology 10/08/18 Urine Culture - Final, Complete Escherichia coli My Orders Orders - YUSEF WILD Comprehensive Metabolic Panel (10/08/18 19:25) Lipase (10/08/18 19:25) Amylase (10/08/18:25) Saline Lock/Iv-Start (10/08/18:25) Cbc With Automated Diff (10/08/18:25) Ct Abdomen/Pelvis W (10/08/18 19:25) Ondansetron Injection (Zofran Injectio (10/08/18 19:30) Fentanyl Injection (Sublimaze Injection (10/08/18 19:30) Ns Iv 1000 Ml (Sodium Chloride 0.9%) (10/08/18 19:30) Fentanyl Injection (Sublimaze Injection (10/08/18 21:30) Ceftriaxone For Iv Use (Rocephin For I (10/08/18 21:30) Medications Given in ED Vital Signs/I&O 10/08/18 10/08/18 17:40 22:40 Temp 97.4 97.4 Pulse 85 67 Resp 16 16 B/P (MAP) 168/67 (100) 164/79 (107) Pulse Ox 98 98 O2 Delivery Room Air Room Air Blood Pressure Mean: 100 Progress Progress Note : Time: 21:40 Progress Note I have seen and evaluated the patient. I've informed her of her laboratory and imaging studies. Her pain has improved after medication. She agrees with plan of care, plans for discharge, return precautions were given. Diagnostic Imaging Diagonstic Imaging: CT Plain Films/CT/US/NM/MRI: abdomen, pelvis Comments NAME: SABA ROMERO [facility] REC#: [id number] PT STATUS: REG ER : 1955 PHYSICIAN: YUSEF WILD ADMIT DATE: 10/08/18/ER Signed Date of Exam: 10/08/18 CT ABDOMEN/PELVIS W PROCEDURE: CT abdomen and pelvis with contrast. TECHNIQUE: Multiple contiguous axial images were obtained through the abdomen and pelvis after administration of intravenous contrast. INDICATION: Left lower quadrant pain, nausea and vomiting. 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 There is no bowel obstruction. The gallbladder surgically absent. The liver, bile ducts, spleen, adrenals, pancreas are unremarkable. The aortoiliac and mesenteric vessels patent and nonaneurysmal. No diverticulitis. The uterus absent. No adnexal lesion. The urinary bladder appeared unremarkable. There is no focal inflammatory process. No abscess, hematoma or acute fluid collection. The lung bases and the osseous structures nonacute. IMPRESSION: No obstructive features, inflammatory process or acute abnormalities identified. 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 Dictated by: Dictated on workstation # [id number] Dict: 10/08/182055 Trans: 10/08/182155 Interpreted by: JUDE CARDENAS Electronically signed by: JUDE CARDENAS 10/08/182155 Reviewed: Reviewed by Me Departure Impression Primary Impression: Urinary tract infection Additional Impression: Nausea vomiting and diarrhea Disposition: 01 HOME, SELF-CARE Condition: Stable/Unchanged Departure-Patient Inst. Decision time for Depature: 21:40 Referrals: En SANTOYO DO (PCP/Family) Primary Care Physician Patient Instructions: Urinary Tract Infection, Adult (DC) Add. Discharge Instructions: Take medications as directed. You may use [id number] antidiarrheals as directed by the packaging. Follow-up with your primary care provider within 1 week for a recheck. Return back to the emergency room for worsening symptoms or concerns as needed. All discharge instructions reviewed with patient and/or family. Voiced understanding. Scripts Ondansetron HCl (Zofran) 4 Mg Tab 4 MG PO Q4H PRN for NAUSEA/VOMITING-1ST LINE, #14 TAB Prov: YUSEF WILD 10/08/18 Cephalexin (Keflex) 500 Mg Capsule 500 MG PO BID for 7 Days, #14 CAP Prov: YUSEF WILD 10/08/18 YUSEF WILD Oct 08, 2018 20:12
[2018-10-08 20:29] LABS: ALBUMIN 4.1 GM/DL (3.2-4.5); BILIRUBIN,TOTAL 0.3 MG/DL (0.1-1.0); CALCIUM 9.5 MG/DL (8.5-10.1); CREATININE SERUM 0.99 MG/DL (0.60-1.30); POTASSIUM 4.1 MMOL/L (3.6-5.0)
[2018-10-08] MEDS ORDERED: IOHEXOL 350 MG/ML 100 ML (OMNIPAQUE 350) VIAL IV ONE (20:45)
[2018-10-08] MEDS ORDERED: NS 100 ML (IVPB) BAG IV ONE (20:45)
[2018-10-08] MEDS ORDERED: RECEIVED CONTRAST 20 ML VIAL IV SCH (20:45)
--- NOTE | 2018-10-08 21:02 | Diagnostic Imaging Report ---
PROCEDURE: CT abdomen and pelvis with contrast. TECHNIQUE: Multiple contiguous axial images were obtained through the abdomen and pelvis after administration of intravenous contrast. INDICATION: Left lower quadrant pain, nausea and vomiting. 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 There is no bowel obstruction. The gallbladder surgically absent. The liver, bile ducts, spleen, adrenals, pancreas are unremarkable. The aortoiliac and mesenteric vessels patent and nonaneurysmal. No diverticulitis. The uterus absent. No adnexal lesion. The urinary bladder appeared unremarkable. There is no focal inflammatory process. No abscess, hematoma or acute fluid collection. The lung bases and the osseous structures nonacute. IMPRESSION: No obstructive features, inflammatory process or acute abnormalities identified. 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 Dictated by: Dictated on workstation # [id number]
[2018-10-08 21:07] LABS: BILIRUBIN,URINE NEGATIVE (NEGATIVE); CLARITY,URINE CLEAR; COLOR,URINE YELLOW; GLUCOSE, URINE (UA) 4+ (NEGATIVE); KETONES,URINE NEGATIVE (NEGATIVE); LEUKOCYTE ESTERASE ,URINE 1+ (NEGATIVE); NITRITE,URINE POSITIVE (NEGATIVE); PH,URINE 6 (5-9); PROTEIN,URINE 2+ (NEGATIVE); UROBILINOGEN,URINE NORMAL (NORMAL)
[2018-10-08 21:17] LABS: BACTERIA,URINE LARGE /HPF
[2018-10-08] MEDS ORDERED: cefTRIAXone FOR IV USE 1,000 MG in WATER (STERILE) FOR INJECTION 10 ML IV ONE (21:30)
[2018-10-08] MEDS ORDERED: CEPH-507 PO (21:42)
[2018-10-08] MEDS ORDERED: ONDN4T PO (21:42)
[2018-10-08 22:40] VITALS: BP 164/79
== END 2018-10-08 22:38 | disposition home or self-care (01) ==
LOC: EDUNIT# 17:38 → ER 17:39
DX: N39.0 Urinary tract infection, site not specified (principal); R19.7 Diarrhea, unspecified; Z88.2 Allergy status to sulfonamides; Z88.8 Allergy status to other drugs, medicaments and biological substances; Z98.890 Other specified postprocedural states; Z85.3 Personal history of malignant neoplasm of breast
CPT/HCPCS: 36415; 74177; 80053; 81000; 82150; 83690; 85025; 87077; 87088; 87186